=== PATIENT | female | born 1950 | race Caucasian/White ===

== ENCOUNTER 2019-12-18 08:06 | Day surgery (SDC) | payer MEDICARE, BC ==
[~2019-12-18 08:06] MED LIST: Bupivacaine 0.5%/EPINEPHrine 1:200,000 50 ML MDV ONE
[2019-12-18] MEDS ORDERED: Acetaminophen 500 MG Tab PO ONE (08:15)
[2019-12-18] MEDS: Dextrose 5%-Lactated Ringers 1,000 ML IV SCH ×3 (08:49→21:46)
[2019-12-18] MEDS ORDERED: Midazolam 1 MG/ML 2 ML SDV ONE (08:49)
[2019-12-18] MEDS ORDERED: Propofol 200 MG/20 ML SDV ONE (08:49)
[2019-12-18] MEDS ORDERED: fentaNYL 100 MCG/2 ML SDV ONE (08:49)
[2019-12-18] MEDS ORDERED: WIXELA INHUB INH ONE (09:15)
[2019-12-18] MEDS ORDERED: ceFAZolin 2 GM in Premix Bag 1 BAG IV ONE (09:30)
[2019-12-18] MEDS ORDERED: Albuterol/Ipratropium 3.0-0.5 MG/3 ML Neb Soln NEB ONE (09:30)
[2019-12-18] MEDS ORDERED: Succinylcholine 200 MG/10 ML MDV ONE (10:25)
[2019-12-18] MEDS ORDERED: Ondansetron 4 MG/2 ML SDV ONE (10:25)
[2019-12-18] MEDS ORDERED: Neostigmine Methylsulfate 1 MG/ML 5 ML Syringe ONE (10:25)
[2019-12-18] MEDS ORDERED: Glycopyrrolate 0.2 MG/ML 5 ML MDV ONE (10:25)
[2019-12-18] MEDS ORDERED: Rocuronium 50 MG/5 ML Vial ONE (10:25)
[2019-12-18] MEDS ORDERED: Dexamethasone 4 MG/ML SDV ONE (10:25)
[2019-12-18] MEDS ORDERED: fentaNYL 250 MCG/5 ML SDV ONE (10:36)
[2019-12-18] MEDS ORDERED: Sugammadex Sodium 200 MG/2 ML VIAL ONE (11:11)
[2019-12-18] MEDS ORDERED: Insulin Lispro 100 Unit/ML 3 ML KwikPen SUBCUT ONE (11:30)
[2019-12-18] MEDS ORDERED: Insulin Lispro 100 Unit/ML 3 ML KwikPen SUBCUT PRN (12:22)
[2019-12-18] MEDS ORDERED: Glucose Gel 15 GM in 37.5 GM Tube PO PRN (12:22)
[2019-12-18] MEDS ORDERED: 50% Dextrose in Water 50 ML Syringe IVPUSH PRN (12:22)
[2019-12-18] MEDS ORDERED: Glucagon,Human Recombinant 1 MG Vial IM PRN (12:22)
[2019-12-18] MEDS ORDERED: Albuterol 0.083% 2.5 MG/3 ML Neb Soln INH PRN (12:35)
[2019-12-18] MEDS ORDERED: Ondansetron 4 MG/2 ML SDV IVPUSH PRN (12:35)
[2019-12-18] MEDS ORDERED: Levalbuterol Tartrate HFA 15 GM Inhaler INH PRN (12:58)
[2019-12-18] MEDS ORDERED: Temazepam 15 MG Cap PO PRN (13:03)
[2019-12-18] MEDS: Acetaminophen/HYDROcodone 325-5 MG Tab PO PRN ×3 (14:18→23:29)
[2019-12-18] MEDS: Pseudoephedrine 30 MG Tab PO SCH ×2 (17:31→21:39)
[2019-12-18] MEDS: ceFAZolin 2 GM in Premix Bag 1 BAG IV SCH (17:31)
[2019-12-18] MEDS: Insulin Lispro 100 Unit/ML 3 ML KwikPen SUBCUT SCH (17:32)
[2019-12-18] MEDS ORDERED: Montelukast 10 MG Tab PO SCH (21:00)
[2019-12-18] MEDS ORDERED: Latanoprost 0.005% Ophth Soln 2.5 ML Bottle EYEBOTH SCH (21:00)
[2019-12-18] MEDS: WIXELA INHUB INH SCH (21:36)
[2019-12-18] MEDS: Insulin Glargine,Human Rec. Analog 100 Units/ML 3 ML Pen SUBCUT SCH (21:37)
[2019-12-18] MEDS ORDERED: Benzocaine/Cetylpyridinium/Menthol Lozenge MUCMEM PRN (23:22)
[2019-12-19] MEDS: ceFAZolin 2 GM in Premix Bag 1 BAG IV SCH ×2 (02:33→09:14)
[2019-12-19] MEDS: Pseudoephedrine 30 MG Tab PO SCH (03:54)
[2019-12-19] MEDS: Acetaminophen/HYDROcodone 325-5 MG Tab PO PRN (03:57)
[2019-12-19] MEDS: Insulin Lispro 100 Unit/ML 3 ML KwikPen SUBCUT SCH (07:38)
[2019-12-19] MEDS: Insulin Glargine,Human Rec. Analog 100 Units/ML 3 ML Pen SUBCUT SCH ×2 (07:39→08:27)
[2019-12-19] MEDS: WIXELA INHUB INH SCH (07:57)
[2019-12-19] MEDS ORDERED: Lisinopril 2.5 MG Tab PO SCH (09:00)
[2019-12-19] MEDS ORDERED: FLUoxetine 20 MG Cap PO SCH (09:00)
[2019-12-19] MEDS ORDERED: Aspirin 81 MG Tab.EC PO SCH (09:00)
[2019-12-19] MEDS ORDERED: Fluticasone Propionate Nasal Spray 16 GM Bottle NASBOTH SCH (09:00)
[2019-12-19] MEDS ORDERED: atorvaSTATin 20 MG Tab PO SCH (09:00)
[2019-12-19] MEDS ORDERED: Fenofibrate 54 MG Tab PO SCH (09:00)
[2019-12-19] MEDS ORDERED: Loratadine 10 MG Tab PO SCH (09:00)
[2019-12-19] MEDS ORDERED: Timolol Maleate 0.25% Ophth Soln 5 ML Bottle EYEBOTH SCH (09:00)
[2019-12-19] MEDS ORDERED: buPROPion 150 MG Tab.ER PO SCH (09:00)
--- NOTE | 2019-12-19 17:32 | DISCH ---
ADMISSION DIAGNOSES: 1. Left inguinal hernia. 2. Diabetes, type 2. 3. Asthma. 4. Obstructive sleep apnea. 5. Hypercholesterolemia. 6. Hypertension. 7. Depression. DISCHARGE DIAGNOSES: 1. Open repair of direct left inguinal hernia. 2. Left ilioinguinal nerve at risk for scar entrapment. DATE OF PROCEDURE: 12/18/2019. SURGEON: Michael Colorado MD. HISTORY: Erny Mario is a 69-year-old female with left inguinal hernia. After preoperative evaluation and discussion of possible risks and possible complications, she wished to proceed with surgical procedure. HOSPITAL COURSE: Eryn had her surgery on 12/18/2019. She had no operative complications, and she was able to be discharged to home on 12/19/2019. PHYSICAL EXAMINATION: GENERAL: Eryn is a pleasant 69-year-old female. VITAL SIGNS: TPR is 97.2, 77, 18; blood pressure 114/61. HEENT: Negative. NECK: Supple. HEART: Regular rate and rhythm. LUNGS: Clear. ABDOMEN: Dressing dry. She has a washcloth in her glued incision, and incision looks clean and dry. EXTREMITIES: Without peripheral edema. DISPOSITION: Discharged to home. CONDITION: Stable and improving. FOLLOWUP APPOINTMENTS: With Michael Colorado MD, at [facility] on 12/31/2019 at 10 a.m. HOME MEDICATIONS: 1. [place] 5/325 mg 1 to 2 tablets every 4 hours p.r.n. pain, #40. 2. She is to resume home medication Tylenol 650 mg every 4 hours, to watch for going over the recommended Tylenol dosage. 3. Proventil 3 mL inhalation 4 times a day p.r.n. shortness of breath. 4. Aspirin low dose 81 mg oral every 48 hours. 5. Lumigan ophthalmic solution 1 drop in each eye at bedtime. 6. Epinephrine 0.3 mL IM p.r.n. allergies. 7. Prozac 40 mg oral daily. 8. Fenofibrate 160 mg oral daily. 9. Summer-D 1 tablet oral twice daily. 10.Fluticasone propionate/salmeterol 500/50 one inhalation twice daily. 11.Flonase 2 sprays nasal daily. 12.NovoLog FlexPen per sliding scale. 13.Levemir 12 units subcu twice daily. 14.Xopenex 2 puffs inhalation every 4 hours p.r.n. wheezing. 15.Lisinopril 2.5 mg oral daily. 16.Singulair 10 mg oral daily. 17.Afrin one spray as directed p.r.n. congestion. 18.Triazolam 0.025 mg oral at bedtime p.r.n. insomnia. 19.Lipitor 40 mg oral daily. 20.Bupropion 150 mg oral daily. 21.Timoptic 0.25 ophthalmic solution 1 drop in each eye daily. DIET: Usual diet as tolerated. Drink 8 to 10 glasses of water a day. LIFTING: No lifting greater than 10 pounds for 6 weeks. DRIVING AFTER DISCHARGE: Do not drive for 1 week and while on pain medication. SHOWER/BATHING: May shower. DISCHARGE INSTRUCTIONS: Notify provider if any fever, increased pain, swelling, redness, drainage, nausea, or vomiting. Keep site clean and dry. Use incentive spirometer 10 times every hour while awake for 1 week.
--- NOTE | 2019-12-23 11:52 | OR ---
DATE OF PROCEDURE: 12/18/2019 SURGEON: Michael Colorado MD PREOPERATIVE DIAGNOSIS: Left inguinal hernia. POSTOPERATIVE DIAGNOSES: 1. Direct inguinal hernia. 2. Left ilioinguinal nerve at risk for scar entrapment. OPERATIVE PROCEDURE: Left inguinal exploration with: 1. Repair of direct left inguinal hernia with mesh plug technique (68350). 2. Excision of portion of left ilioinguinal nerve (56683). ANESTHESIA: General. LOADER SEMICONDUCTOR DIES: Maisha Mcknight PA-C INDICATIONS FOR PROCEDURE: This is a 69-year-old presenting with increasingly symptomatic left inguinal hernia. This appeared most likely to be an inguinal hernia, and she does have an axial incision in the area, but the hernia appears to be presenting somewhat inferior to that making this likely an inguinal hernia. Plan is to proceed with left inguinal exploration with repair of hernia thus indicated with mesh plug technique. Potential risks including bleeding, infection, injury to underlying viscera, problems with hernia recurring or the mesh becoming infected, chronic pain following the hernia repair were reviewed that will often divide nerves in the area that might cause being entrapped in scar hypogastric nerve was reviewed and the patient wishes to proceed. DETAILS OF PROCEDURE: The patient was taken to the operating room, placed in a supine position. After general endotracheal anesthesia was induced, the abdomen and groin areas were prepped and draped. A standard left inguinal incision was made and carried down through the skin and subcutaneous tissue and through the external oblique aponeurosis. After the aponeurotic flaps were raised superiorly and inferiorly, the ilioinguinal nerve was felt to be at high risk for scar entrapment where it was located. This was divided and excised in the far lateral aspect of the incision. Further dissection revealed a direct inguinal hernia. This had the perivesical fat protruding through the level of the transversalis fascia. The transversalis fascia was incised and this allowed dissection underneath the conjoined tendon medially, superiorly, and laterally. An extra large mesh plug was then selected and placed into the defect, and underneath conjoined tendon, there was a fixed Tony's ligament with titanium tacking screws, and to the underside of the conjoined tendon medially, superiorly, and laterally with horizontal mattress sutures of 0 Vicryl stitch. The free edge of the conjoined tendon was then sutured down with 0 Vicryl stitch to the shelving portion of the inguinal ligament. The flat portion of the mesh plug system was felt not to be necessary at this point and the external oblique aponeurosis approximated with 3-0 Vicryl stitch as was Tova's fascia and the skin then closed with a 4-0 Vicryl subcuticular stitch and surgical glue. The patient was taken to the recovery room in satisfactory condition. Physician assistant to the director, Maisha Mcknight played an essential role in assisting in this case, helping to position the patient, retract structures as needed, as well as suturing and cutting sutures when indicated. Her presence improved patient safety and decreased the operative time. Michael Colorado MD /[id number]
== END 2019-12-19 10:58 | disposition home or self-care (01) ==
LOC: JP.SDS 08:06 → JP.MS 11:00 → JP.SDS 12-19 10:58
PROVIDERS: ATTEND Surgery
DX: K40.90 Unilateral inguinal hernia, without obstruction or gangrene, not specified as recurrent (principal); J45.909 Unspecified asthma, uncomplicated; G47.33 Obstructive sleep apnea (adult) (pediatric); E78.00 Pure hypercholesterolemia, unspecified; F32.9 Major depressive disorder, single episode, unspecified; N18.30 Chronic kidney disease, stage 3 unspecified; E11.22 Type 2 diabetes mellitus with diabetic chronic kidney disease; I12.9 Hypertensive chronic kidney disease with stage 1 through stage 4 chronic kidney disease, or unspecified chronic kidney disease; Z79.899 Other long term (current) drug therapy; Z79.4 Long term (current) use of insulin; Z79.82 Long term (current) use of aspirin
CPT/HCPCS: 36415; 49505; 82962; 85027; 88302; 94640; 94762; A9270; C1713; C1781; J0330; J0690; J1100; J1815; J2250; J2405; J2704; J2710; J3010; J3490; J7121; J7620-GY

== ENCOUNTER 2021-07-29 19:35 | Emergency (ER) | payer MEDICARE, BC ==
[2021-07-29] MEDS ORDERED: HYDROmorphone 1 MG/ML Syringe IM ONE (20:03)
== END 2021-07-29 22:50 | disposition home or self-care (01) ==
LOC: JP.ED 19:35
DX: M47.816 Spondylosis without myelopathy or radiculopathy, lumbar region (principal); M48.061 Spinal stenosis, lumbar region without neurogenic claudication; M51.36 Other intervertebral disc degeneration, lumbar region; M17.12 Unilateral primary osteoarthritis, left knee; J45.909 Unspecified asthma, uncomplicated; E78.00 Pure hypercholesterolemia, unspecified; E11.9 Type 2 diabetes mellitus without complications; Z79.899 Other long term (current) drug therapy; Z79.82 Long term (current) use of aspirin; Z79.4 Long term (current) use of insulin; Z90.710 Acquired absence of both cervix and uterus; Z91.09 Other allergy status, other than to drugs and biological substances
CPT/HCPCS: 72131; 72192; 73501-26-LT; 73501-LT; 96372; 99283; 99284-25; J1170

== ENCOUNTER 2024-12-24 07:48 | Inpatient (IN) | payer MEDICARE, BC ==
[~2024-12-24 07:48] MED LIST changes: -Bupivacaine 0.5%/EPINEPHrine 1:200,000 50 ML MDV ONE; +Nozin Nasal Sanitizer NASBOTH ONE
[2024-12-24 08:18] LABS: PLATELET COUNT,PLT 411.0 K/uL (130-375); RED BLOOD CELL COUNT 4.77 M/uL (3.77-5.24); WHITE BLOOD CELL COUNT,WBC 7.4 K/uL (3.2-11.0)
[2024-12-24] MEDS: Lactated Ringers 1,000 ML IV SCH (08:33)
[2024-12-24] MEDS: Nozin Nasal Sanitizer NASBOTH SCH ×2 (08:34→21:17)
[2024-12-24 08:43] LABS: BLOOD UREA NITROGEN,BUN 23.0 mg/dL (7-18); CARBON DIOXIDE,CO2 30.0 mmol/L (21-32); CHLORIDE,CL 103.0 mmol/L (100-108); CREATININE 0.9 mg/dL (0.6-1.0); EST CRCL DRUG DOSING (CG) 45.36 mL/min; ESTIMATED GFR 67.0 mL/min (>60); GLUCOSE RANDOM 119.0 mg/dL (74-106); POTASSIUM,K 4.5 mmol/L (3.6-5.2); SODIUM,NA 141.0 mmol/L (140-148)
[2024-12-24] MEDS ORDERED: Midazolam 1 MG/ML 2 ML SDV ONE (09:07)
[2024-12-24] MEDS ORDERED: Propofol 200 MG/20 ML SDV ONE ×2 (09:07→10:13)
[2024-12-24] MEDS ORDERED: fentaNYL 100 MCG/2 ML SDV ONE ×3 (09:07→10:51)
[2024-12-24] MEDS ORDERED: 50% Dextrose in Water 50 ML Syringe IVPUSH PRN (09:11)
[2024-12-24] MEDS ORDERED: Albuterol 0.083% 2.5 MG/3 ML Neb Soln NEB PRN (09:11)
[2024-12-24] MEDS ORDERED: Non-Formulary Medication 1 Each (Levalbuterol Tartrate [Xopenex Hfa] 15 GM Inhaler) INH PRN (09:11)
[2024-12-24] MEDS ORDERED: Lactated Ringers 1,000 ML ONE (09:36)
[2024-12-24] MEDS ORDERED: EPINEPHrine 1 MG/ML SDV IM PRN (10:11)
[2024-12-24] MEDS: Ketorolac 15 MG/ML SDV IVPUSH PRN (13:31)
[2024-12-24] MEDS ORDERED: Non-Formulary Medication 1 Each (Insulin Aspart [Novolog Flexpen] 100 UNIT/ML Ml) SQ SCH (14:00)
[2024-12-24] MEDS: Ondansetron 4 MG/2 ML SDV IVPUSH PRN (16:01)
[2024-12-24] MEDS: Insulin Lispro 100 Unit/ML 3 ML KwikPen SUBCUT SCH (17:04)
[2024-12-24] MEDS: Insulin Glargine,Human Rec. Analog 100 Units/ML 3 ML Pen SUBCUT SCH (21:15)
[2024-12-24] MEDS: ALLEGRA D PO SCH (21:18)
[2024-12-24] MEDS: SALMETEROL INH SCH (21:21)
[2024-12-24] MEDS: FLUTICASONE PROPION INH SCH (21:21)
[2024-12-24] MEDS: Timolol Maleate 0.5% Ophth Soln 5 ML Bottle EYELF SCH (21:22)
[2024-12-25] MEDS: Aspirin 325 MG Tab.EC PO SCH (08:00)
[2024-12-25] MEDS: Fluticasone NASAL Spray 16 GM Bottle NASBOTH SCH (08:01)
[2024-12-25] MEDS: Timolol Maleate 0.5% Ophth Soln 5 ML Bottle EYERT SCH (08:04)
[2024-12-25] MEDS: Insulin Lispro 100 Unit/ML 3 ML KwikPen SUBCUT SCH (08:06)
[2024-12-25] MEDS: Insulin Glargine,Human Rec. Analog 100 Units/ML 3 ML Pen SUBCUT SCH (08:07)
[2024-12-25] MEDS ORDERED: INSULIN DETEMIR 100 UNIT/ML SQ SCH (09:00)
[2024-12-25] MEDS ORDERED: Timolol Maleate 0.25% Ophth Soln 5 ML Bottle EYEBOTH SCH (09:00)
[2024-12-27] MEDS: Ondansetron 4 MG Tab.DIS PO PRN (01:12)
[2024-12-27] MEDS: Magnesium Hydroxide 400 MG/5 ML Susp 30 ML Cup PO PRN (08:17)
== END 2024-12-29 10:30 | DRG 470 ==
LOC: JP.SDS 07:48 → JP.MS 09:14 → JP.SDS 12-25 08:22 → JP.MS 12-25 08:22
PROVIDERS: ADMIT Specialist; ATTEND Specialist
PROC: 0SRC0J9 Replacement of Right Knee Joint with Synthetic Substitute, Cemented, Open Approach (ICD-10-PCS; principal; 2024-12-24 07:30)
DX: M17.11 Unilateral primary osteoarthritis, right knee (principal)
CPT/HCPCS: 36415; 73560-26-RT; 73560-RT; 80048; 85027; 94640; 97110-GP; 97116-GP; 97161-GP; 97530-GP; A9270-GY; C1713; C1776; J0665; J0690; J1815-GY; J1885; J2250; J2270; J2405; J2704; J3010; J7030; J7120; Q0162